=== PATIENT | male | born 1990 | race Caucasian/White ===

== ENCOUNTER 2017-01-06 14:03 | Emergency (ER) | payer OTHER ==
[~2017-01-06] VITALS: Ht 177.8 cm; Wt 79.1 kg
[~2017-01-06 14:03] MED LIST: PROCTOFOAM-HC F10 G1 RC
[2017-01-06 14:05] VITALS: BP 135/71; PULSE 79; TEMP 98.1
== END 2017-01-06 16:42 | disposition home or self-care (01) ==
LOC: COL.ER 14:03
DX: K64.4 Residual hemorrhoidal skin tags (principal); F17.210 Nicotine dependence, cigarettes, uncomplicated